=== PATIENT | female | born 1950 | race Two or more races ===

== ENCOUNTER 2024-01-30 12:34 | Emergency (ER) | payer MEDICARE, BC ==
[~2024-01-30] VITALS: Ht 154.9 cm; Wt 77.0 kg
[2024-01-30 12:37] VITALS: BP 136/61; PULSE 62; RESP 16; TEMP 97.7; O2SAT 100
[2024-01-30] MEDS: ACETAMINOPHEN 500MG TABLET PO ONE (14:53)
[2024-01-30 16:05] LABS: BASOPHILS % 0.4 % (0.0-2.0); EOSINOPHILS % 0.5 % (0.0-5.0); HEMATOCRIT. 41.5 % (36.0-48.0); HEMOGLOBIN. 13.8 g/dL (12.0-16.0); LYMPHOCYTES % 18.2 % (20.0-50.0); MEAN CORPUSCULAR HEMOGLOBIN 30.6 pg (28.0-32.0); MEAN CORPUSCULAR HGB CONC 33.3 g/dL (31.0-37.0); MEAN PLATELET VOLUME 9.1 fl (7.4-10.4); MONOCYTES % 6.5 % (2.0-8.0); NEUTROPHILS % 74.4 % (40.0-76.0); PLATELET 198 x1000/uL (130-400); RED BLOOD CELL COUNT 4.52 mill/uL (4.2-5.4); RED CELL DISTRIBUTION WIDTH 13.4 % (11.6-14.6); WHITE BLOOD COUNT 8.9 x1000/uL (4.5-11.0)
[2024-01-30 16:08] LABS: CHLORIDE 107 mEq/L (98-107); SODIUM 139 mEq/L (136-145)
[2024-01-30 16:09] LABS: CARBON DIOXIDE 28 mEq/L (21-32)
[2024-01-30 16:10] LABS: CALCIUM 9.6 mg/dL (8.7-10.4)
[2024-01-30 16:14] LABS: CREATININE 0.8 mg/dL (0.6-1.0); GLUCOSE 114 mg/dL (70-105)
[2024-01-30 16:15] LABS: UREA NITROGEN BLOOD 21 mg/dL (9-23)
[2024-01-30] MEDS ORDERED: IOHEXOL-300 100 ML BOTTLE ONE (21:33)
== END 2024-01-30 19:06 | disposition home or self-care (01) ==
LOC: ER 12:34
DX: S92.321A Displaced fracture of second metatarsal bone, right foot, initial encounter for closed fracture (principal); S92.331A Displaced fracture of third metatarsal bone, right foot, initial encounter for closed fracture; S92.341A Displaced fracture of fourth metatarsal bone, right foot, initial encounter for closed fracture; S20.219A Contusion of unspecified front wall of thorax, initial encounter; S30.1XXA Contusion of abdominal wall, initial encounter; V49.59XA Passenger injured in collision with other motor vehicles in traffic accident, initial encounter; Y93.89 Activity, other specified; Y92.89 Other specified places as the place of occurrence of the external cause; Y99.8 Other external cause status
CPT/HCPCS: 99284; 74177; 71045; 80048; 85025; 36415; 73630; Q9967